=== PATIENT | female | born 1985 | race Caucasian/White ===

== ENCOUNTER 2019-08-14 08:21 | Emergency (ER) | payer BC ==
[~2019-08-14] VITALS: Ht 160 cm; Wt 59.0 kg
[2019-08-14 09:07] LABS: ABSOLUTE NEUTROPHILS 3.7 thou/uL (1.4-8.2); BASOPHILS 0.9 % (0.0-2.0); EOSINOPHILS 0.7 % (0.0-3.0); HEMATOCRIT 40.8 % (37.0-47.0); HEMOGLOBIN 13.7 gm/dL (12.0-15.0); LYMPHOCYTES 26.5 % (24.0-44.0); MCH 29.3 pg (26.0-34.0); MCHC 33.5 g/dL (28.0-37.0); MCV 87.4 fL (80.0-100.0); MONOCYTES 8.7 % (1.0-8.0); PLATELET COUNT 218 thou/uL (150-400); POLYS 63.2 % (36.0-66.0); RBC 4.67 mil/uL (4.20-5.00); RDW 12.9 % (10.5-14.5); WBC 5.8 thou/uL (4.0-11.0)
[2019-08-14 09:10] LABS: CALCIUM 9.1 mg/dL (8.5-10.1); CREATININE 0.7 mg/dL (0.6-1.0); MAGNESIUM 1.9 mg/dL (1.8-2.4); POTASSIUM 3.7 mmol/L (3.5-5.1)
[2019-08-14 10:20] LABS: URINE BILIRUBIN NEGATIVE (Negative); URINE BLOOD NEGATIVE (Negative); URINE CLARITY SL CLOUDY; URINE COLOR YELLOW; URINE GLUCOSE-RANDOM* NEGATIVE (Negative); URINE KETONES NEGATIVE (Negative); URINE LEUKOCYTES-REFLEX TRACE (Negative); URINE NITRITE-REFLEX NEGATIVE (Negative); URINE PROTEIN (DIPSTICK) TRACE (Negative)
[2019-08-14] MEDS ORDERED: ZOFRAN ODT4 MG PO (11:25)
[2019-08-14 11:32] VITALS: BP 106/67
== END 2019-08-14 11:33 | disposition home or self-care (01) ==
LOC: ER 08:21
PROVIDERS: Emergency Medicine
DX: R11.2 Nausea with vomiting, unspecified (principal); R10.13 Epigastric pain; Z98.890 Other specified postprocedural states; Z90.49 Acquired absence of other specified parts of digestive tract; Z88.1 Allergy status to other antibiotic agents; Z88.6 Allergy status to analgesic agent

== ENCOUNTER → 2020-02-22 | Outpatient (CLI) | payer BC ==
[~2020-02-22] MED LIST: ZOFRAN ODT4 MG PO
== END ==
LOC: LAB 15:12
PROVIDERS: ATTEND Nurse Practitioner
DX: R51 Headache (principal); M25.50 Pain in unspecified joint; Z20.828 Contact with and (suspected) exposure to other viral communicable diseases

== ENCOUNTER → 2020-07-26 | Outpatient (CLI) | payer BC, OTHER | LOC: LAB 14:57 | PROVIDERS: ATTEND Nurse Practitioner | DX: J02.9 Acute pharyngitis, unspecified (principal); R05 Cough; R68.83 Chills (without fever); Z20.828 Contact with and (suspected) exposure to other viral communicable diseases ==

== ENCOUNTER 2021-01-19 08:07 | Emergency (ER) | payer BC, OTHER ==
[~2021-01-19] VITALS: Ht 160 cm; Wt 68.0 kg
[2021-01-19 08:30] LABS: URINE BILIRUBIN NEGATIVE (Negative); URINE BLOOD TRACE (Negative); URINE CLARITY CLEAR; URINE COLOR YELLOW; URINE GLUCOSE-RANDOM* NEGATIVE (Negative); URINE KETONES NEGATIVE (Negative); URINE LEUKOCYTES-REFLEX NEGATIVE (Negative); URINE NITRITE-REFLEX NEGATIVE (Negative); URINE PROTEIN (DIPSTICK) NEGATIVE (Negative); URINE UROBILINOGEN 0.2 E.U./dl (0.2-1.0)
[2021-01-19 08:37] LABS: ABSOLUTE NEUTROPHILS 3.1 thou/uL (1.4-8.2); BASOPHILS 1.3 % (0.0-2.0); HEMATOCRIT 39.6 % (37.0-47.0); HEMOGLOBIN 13.4 gm/dL (12.0-15.0); LYMPHOCYTES 28.8 % (24.0-44.0); MCH 29.9 pg (26.0-34.0); MCHC 33.8 g/dL (28.0-37.0); MCV 88.5 fL (80.0-100.0); PLATELET COUNT 245 thou/uL (150-400); POLYS 60.9 % (36.0-66.0); RBC 4.48 mil/uL (4.20-5.00); RDW 12.7 % (10.5-14.5); WBC 5.1 thou/uL (4.0-11.0)
[2021-01-19 08:43] LABS: CALCIUM 8.9 mg/dL (8.5-10.1); CREATININE 0.8 mg/dL (0.6-1.0)
[2021-01-19 08:49] LABS: ALBUMIN 3.9 g/dL (3.4-5.0); TOTAL BILIRUBIN 0.6 mg/dL (0.2-1.0); TOTAL PROTEIN 7.2 g/dL (6.4-8.2)
[2021-01-19 13:30] VITALS: BP 106/76
== END 2021-01-19 13:30 | disposition home or self-care (01) ==
LOC: ER 08:07
PROVIDERS: Emergency Medicine
DX: O20.9 Hemorrhage in early pregnancy, unspecified (principal); O21.8 Other vomiting complicating pregnancy; R10.32 Left lower quadrant pain; O99.341 Other mental disorders complicating pregnancy, first trimester; F32.9 Major depressive disorder, single episode, unspecified; F41.9 Anxiety disorder, unspecified; Z3A.01 Less than 8 weeks gestation of pregnancy; Z79.899 Other long term (current) drug therapy; Z88.1 Allergy status to other antibiotic agents; Z88.8 Allergy status to other drugs, medicaments and biological substances; Z98.890 Other specified postprocedural states; Z90.49 Acquired absence of other specified parts of digestive tract